=== PATIENT | male | born 1950 | race Caucasian/White ===

== ENCOUNTER 2018-01-10 22:29 | Inpatient (IN) | payer OTHER, BC ==
[2018-01-10] MEDS: NS 1,000 ML IV ONE ×2 (22:44→22:45)
[2018-01-10 22:49] LABS: PLATELET COUNT 315 10^3/uL (150-400)
--- NOTE | 2018-01-10 22:52 | EDPHY ---
H & P Time Seen by Provider: 01/10/18 22:49 HPI/ROS: Chief Complaint: Altered mental status, possible UTI HPI: 67-year-old male with a history of Parkinson's disease and diabetic neuropathy. He has a suprapubic catheter and also has an ileostomy in place. Son noted that his suprapubic catheter was clock this morning. He called a [facility] to come and make changed the catheter. Is has drained since then. He has become increasingly confused over the course of the day. He also has a history of a decubitus ulcer which was operated on several months ago. The patient and his son moved here from [place] a couple months ago. They do not have any local physicians or medical care. He has felt warm to the touch. He is normally conversant but is only mumbling yes or no today. Per EMS patient was tachycardic in the 130s. Son is also concerned that he has been noticed for the last 3 weeks that the patient has been passing stool per rectum despite the fact that the patient has a functioning ostomy. ROS: 10 systems were reviewed and were negative except those elements noted in the HPI. PMH: Parkinson's disease, diabetes, diabetic neuropathy Social History: No smoking, no alcohol, no recreational drug use Family History: non-contributory Physical Exam: Gen: Awake, frail-appearing, uncomfortable appearing HEENT: Nose: no rhinorrhea Eyes: PERRLA, EOMI Mouth: Dry mucosa Neck: Supple, no JVD Chest: nontender, lungs clear to auscultation Heart: S1, S2 normal, no murmur Abd: Soft, non-tender, ileostomy in place with normal appearing stool. Suprapubic catheter in place, there is mild erythema and some discharging crusting around the suprapubic site Ext: no edema, non-tender Skin: no rash Neuro: CN II-XII intact, Sensation grossly intact, Strength 5/5 in bilateral upper and lower extremities Constitutional: Initial Vital Signs Temperature (C) 39.3 C H 01/10/18 22:30 Heart Rate 130 H 01/10/18 22:30 Respiratory Rate 28 H 01/10/18 22:30 Blood Pressure 99/69 L 01/10/18 22:30 O2 Sat (%) 93 01/10/18 22:30 O2 Delivery Mode Room Air Allergies/Adverse Reactions: No Known Allergies Allergy (Unverified 01/10/18 22:49) Home Medications: Medication Instructions Recorded Carbidopa 01/10/18 Medical Decision Making ED Course/Re-evaluation: 67-year-old male likely uroseptic. He meets SIRS criteria. Lactic acid in sepsis orders have been sent. His bladder is empty. Will wait urine. He is clinically dehydrated. I aggressive IV hydration. Patient's lactate is 1.8. He does not meet criteria for severe sepsis at this point based on his numeric. He is getting IV hydration. He is sacral site does not appear infected at this time. Most likely source is his urine. I have discussed with the hospitalist, Dr. Neal. He agrees with the plan for IV ceftriaxone now. He will admit to his service for further care. - Data Points Laboratory Results: Laboratory Results 01/10/18 22:40 01/10/18 22:40 01/10/18 01/10/18 01/10/18 22:42 22:40 22:40 WBC 22.50 10^3/uL H 10^3/uL (3.80-9.50) RBC 4.90 10^6/uL 10^6/uL (4.40-6.38) Hgb 12.9 g/dL L g/dL (13.7-17.5) Hct 40.4 % % (40.0-51.0) MCV 82.4 fL fL (81.5-99.8) MCH 26.3 pg L pg (27.9-34.1) MCHC 31.9 g/dL L g/dL (32.4-36.7) RDW 17.6 % H % (11.5-15.2) Plt Count 315 10^3/uL 10^3/uL (150-400) MPV 9.4 fL fL (8.7-11.7) Neut % (Auto) 88.4 % H % (39.3-74.2) Lymph % (Auto) 6.2 % L % (15.0-45.0) [place] % (Auto) 4.2 % L % (4.5-13.0) Eos % (Auto) 0.0 % L % (0.6-7.6) Baso % (Auto) 0.3 % % (0.3-1.7) Nucleat RBC Rel Count 0.0 % % (0.0-0.2) Absolute Neuts (auto) 19.90 10^3/uL H 10^3/uL (1.70-6.50) Absolute Lymphs (auto) 1.39 10^3/uL 10^3/uL (1.00-3.00) Absolute Monos (auto) 0.94 10^3/uL H 10^3/uL (0.30-0.80) Absolute Eos (auto) 0.00 10^3/uL L 10^3/uL (0.03-0.40) Absolute Basos (auto) 0.07 10^3/uL 10^3/uL (0.02-0.10) Absolute Nucleated RBC 0.00 10^3/uL 10^3/uL (0-0.01) Immature Gran % 0.9 % % (0.0-1.1) Immature Gran # 0.20 10^3/uL H 10^3/uL (0.00-0.10) PT 15.7 SEC H SEC (12.0-15.0) INR 1.23 H (0.83-1.16) APTT 27.4 SEC SEC (23.0-38.0) VBG Lactic Acid 1.8 mmol/L mmol/L (0.7-2.1) Sodium Potassium Chloride Carbon Dioxide Anion Gap BUN Creatinine Estimated GFR Glucose Calcium Total Bilirubin 01/10/18 22:40 WBC RBC Hgb Hct MCV MCH MCHC RDW Plt Count MPV Neut % (Auto) Lymph % (Auto) [place] % (Auto) Eos % (Auto) Baso % (Auto) Nucleat RBC Rel Count Absolute Neuts (auto) Absolute Lymphs (auto) Absolute Monos (auto) Absolute Eos (auto) Absolute Basos (auto) Absolute Nucleated RBC Immature Gran % Immature Gran # PT INR APTT VBG Lactic Acid Sodium 133 mEq/L L mEq/L (135-145) Potassium 5.0 mEq/L mEq/L (3.3-5.0) Chloride 99 mEq/L mEq/L (97-110) Carbon Dioxide 16 mEq/l L mEq/l (22-31) Anion Gap 18 mEq/L H mEq/L (6-14) BUN 44 mg/dL H mg/dL (7-23) Creatinine 1.4 mg/dL H mg/dL (0.7-1.3) Estimated GFR 51 Glucose 191 mg/dL H mg/dL (70-100) Calcium 9.7 mg/dL mg/dL (8.5-10.4) Total Bilirubin 0.9 mg/dL mg/dL (0.1-1.4) Departure - Departure Disposition: [facility] Inpatient Acute Clinical Impression: Urinary tract infection, Dehydration, SIRS (systemic inflammatory response syndrome) Condition: Serious Referrals: Patient,NotPresent [Unknown] - As per Instructions
[2018-01-10 22:57] LABS: INR 1.23 (0.83-1.16); PROTIME(PATIENT) 15.7 SEC (12.0-15.0)
[2018-01-10] MEDS ORDERED: ACETAMINOPHEN 500 MG TAB ONE (23:03)
[2018-01-10] MEDS ORDERED: NS 1,000 ML IV ONE (23:09)
[2018-01-10] MEDS ORDERED: ONDANSETRON DISINTEGRATING 4 MG TAB PO PRN (23:17)
[2018-01-10] MEDS ORDERED: ONDANSETRON 4 MG/2 ML VIAL IVP PRN (23:17)
[2018-01-10] MEDS ORDERED: ACETAMINOPHEN 500 MG TAB PO ONE (23:21)
[2018-01-10] MEDS ORDERED: D50W 25 GM/50 ML SYR IVP PRN (23:42)
--- NOTE | 2018-01-11 00:57 | PDGENHP ---
History and Physical - Chief Complaint Fatigue, AMS - History of Present Illness 67 yo m w/ hx of PD presents with fatigue and confusion. The majority of the history is obtained from patient's son as patient is moderately confused. Per his son, the patient has displayed signs of fatigue and confusion starting today. He has also been febrile. His son tells me this is a common presentation for him when he has a urinary tract infection, which he has had many of. The patient tells me he is not feeling well but denies specific symptoms. He is breathing comfortably and saturating well on room air. Of note, he had a flap procedure performed recently to address sacral decubitus ulcer. This does not appear infected per his son. Also, his son tells me stool has been noted from his rectum despite ostomy placement 8 months ago. This has been ongoing for 2 weeks. UA is infectious appearing, he does have a supra-pubic catheter in place. He is being admitted for management of sepsis. Case discussed with ED physician Dr. Ruby; records reviewed and summarized above. History Information - Allergies/Home Medication List Allergies/Adverse Reactions: No Known Allergies Allergy (Unverified 01/10/18 22:49) Home Medications: Carbidopa 01/10/18 [Last Taken Unknown] I have personally reviewed and updated: family history, medical history - Past Medical History diabetes type 2 Additional medical history: Parkinson's Disease - Surgical History Additional surgical history: Ostomy. Supra-pubic catheter. Flap procedure for sacral decubitus ulcer - Family History Positive for: diabetes type II - Social History Smoking Status: Never smoked Review of Systems Review of Systems: ROS: 10pt was reviewed & negative except for what was stated in HPI & below Physical Exam Physical Exam: Temp Pulse Resp BP Pulse Ox 36.8 C 123 H 27 H 96/50 L 94 01/11/18 00:41 01/11/18 00:41 01/11/18 00:41 01/11/18 00:41 01/11/18 00:41 O2 (L/minute) 2 Constitutional: no apparent distress, chronically ill appearing Eyes: PERRL, EOMI Ears, Nose, Mouth, Throat: moist mucous membranes, no oral mucosal ulcers Cardiovascular: no murmur, rub, or gallop, tachycardia Respiratory: no respiratory distress, clear to auscultation Gastrointestinal: normoactive bowel sounds, soft, non-tender abdomen, other ( SPT tube noted; ostomy LLQ with brown stool) Skin: warm, other (Sacral flap appears to be healing well; only mild erythema) Neurologic: weakness, other (A&Ox2) Lab Data & Imaging Review 01/10/18 22:40 01/10/18 22:40 WBC 22.50 10^3/uL (3.80-9.50) H 01/10/18 22:40 RBC 4.90 10^6/uL (4.40-6.38) 01/10/18 22:40 Hgb 12.9 g/dL (13.7-17.5) L 01/10/18 22:40 Hct 40.4 % (40.0-51.0) 01/10/18 22:40 MCV 82.4 fL (81.5-99.8) 01/10/18 22:40 MCH 26.3 pg (27.9-34.1) L 01/10/18 22:40 MCHC 31.9 g/dL (32.4-36.7) L 01/10/18 22:40 RDW 17.6 % (11.5-15.2) H 01/10/18 22:40 Plt Count 315 10^3/uL (150-400) 01/10/18 22:40 MPV 9.4 fL (8.7-11.7) 01/10/18 22:40 Neut % (Auto) 88.4 % (39.3-74.2) H 01/10/18 22:40 Lymph % (Auto) 6.2 % (15.0-45.0) L 01/10/18 22:40 [place] % (Auto) 4.2 % (4.5-13.0) L 01/10/18 22:40 Eos % (Auto) 0.0 % (0.6-7.6) L 01/10/18 22:40 Baso % (Auto) 0.3 % (0.3-1.7) 01/10/18 22:40 Nucleat RBC Rel Count 0.0 % (0.0-0.2) 01/10/18 22:40 Absolute Neuts (auto) 19.90 10^3/uL (1.70-6.50) H 01/10/18 22:40 Absolute Lymphs (auto) 1.39 10^3/uL (1.00-3.00) 01/10/18 22:40 Absolute Monos (auto) 0.94 10^3/uL (0.30-0.80) H 01/10/18 22:40 Absolute Eos (auto) 0.00 10^3/uL (0.03-0.40) L 01/10/18 22:40 Absolute Basos (auto) 0.07 10^3/uL (0.02-0.10) 01/10/18 22:40 Absolute Nucleated RBC 0.00 10^3/uL (0-0.01) 01/10/18 22:40 Immature Gran % 0.9 % (0.0-1.1) 01/10/18 22:40 Immature Gran # 0.20 10^3/uL (0.00-0.10) H 01/10/18 22:40 PT 15.7 SEC (12.0-15.0) H 01/10/18 22:40 INR 1.23 (0.83-1.16) H 01/10/18 22:40 APTT 27.4 SEC (23.0-38.0) 01/10/18 22:40 VBG Lactic Acid 1.8 mmol/L (0.7-2.1) 01/10/18 22:42 Sodium 133 mEq/L (135-145) L 01/10/18 22:40 Potassium 5.0 mEq/L (3.3-5.0) 01/10/18 22:40 Chloride 99 mEq/L (97-110) 01/10/18 22:40 Carbon Dioxide 16 mEq/l (22-31) L 01/10/18 22:40 Anion Gap 18 mEq/L (6-14) H 01/10/18 22:40 BUN 44 mg/dL (7-23) H 01/10/18 22:40 Creatinine 1.4 mg/dL (0.7-1.3) H 01/10/18 22:40 Estimated GFR 51 01/10/18 22:40 Glucose 191 mg/dL (70-100) H 01/10/18 22:40 Calcium 9.7 mg/dL (8.5-10.4) 01/10/18 22:40 Total Bilirubin 0.9 mg/dL (0.1-1.4) 01/10/18 22:40 Urine Color YELLOW 01/11/18 00:30 Urine Appearance MODERATELY TURBID 01/11/18 00:30 Urine pH 5.0 (5.0-7.5) 01/11/18 00:30 Ur Specific [place] 1.011 (1.002-1.030) 01/11/18 00:30 Urine Protein 1+ (NEGATIVE) H 01/11/18 00:30 Urine Ketones TRACE (NEGATIVE) H 01/11/18 00:30 Urine Blood 3+ (NEGATIVE) H 01/11/18 00:30 Urine Nitrate NEGATIVE (NEGATIVE) 01/11/18 00:30 Urine Bilirubin NEGATIVE (NEGATIVE) 01/11/18 00:30 Urine Urobilinogen NEGATIVE EU (0.2-1.0) 01/11/18 00:30 Ur Leukocyte Esterase 3+ (NEGATIVE) H 01/11/18 00:30 Urine RBC 50-182 /hpf (0-3) H 01/11/18 00:30 Urine WBC 50-182 /hpf (0-3) H 01/11/18 00:30 Ur Epithelial Cells NONE SEEN /lpf (NONE-1+) 01/11/18 00:30 Urine Bacteria 3+ /hpf (NONE SEEN) H 01/11/18 00:30 Urine Mucus TRACE /lpf (NONE-1+) 01/11/18 00:30 Urine Glucose NEGATIVE (NEGATIVE) 01/11/18 00:30 Nasal Influenza A PCR NEGATIVE FOR FLU A (NEGATIVE) 01/10/18 23:20 Nasal Influenza B PCR NEGATIVE FOR FLU B (NEGATIVE) 01/10/18 23:20 Imaging Review: Imaging Impressions Chest X-Ray 01/10/18 22:42 Impression: Probable bronchitis. Assessment & Plan Assessment: 67 yo M w/ Parkinson's disease and suprapubic catheter presents with sepsis from likely urinary source. Plan: 1. Sepsis - 3/4 SIRS present on admission (HR, T, WBC); source likely urinary. SOFA score of 8. Lactate normal, which is reassuring. The patient has had numerous urinary infections in the past but unfortunately this is his first visit here so difficult to know history of resistant pathogens. - Admit to SDU for close monitoring - S/p 3 L IVF in the ED; continue fluid resuscitation as indicated - CTX 1 g qD for now; low threshold to broaden if not improving - Blood and urine cultures pending - Catheter changed in the ED 2. ANY - Serum creatinine 1.4 on admission with unknown baseline. This is likely due to sepsis and dehydration noting minimal urine output so far despite aggressive hydration. - Continue fluid resuscitation - Monitor BMP - Renally dose medications, avoid nephrotoxic agents 3. Parkinson's disease - S/p SPT and ostomy placement. He has minimal function below his waist. - Continue carbidopa/levodopa pending medicine reconciliation - PT/OT evaluations - CM consulted to review home health services are adequate 4. DM - Takes metformin as outpatient. Noting ANY, will manage BG with insulin for now. - Insulin lispro SSI - Monitor BG ACHS; D50 IVF PRN for hypoglycemia 5. Stool via rectum - Per son, patient has been producing stool via rectum for 2 weeks despite ostomy placement 8 months ago. This brings up possibility of a fistula. - Consider surgical consult (inpatient v outpatient) once stable 6. Acute metabolic encephalopathy - 2/2 infection, continue to monitor. - Acute management as above Diet - Regular Code - Full Ppx - LMWH Dispo - Admit under inpatient status
[2018-01-11] MEDS: NS 1,000 ML IV SCH ×3 (01:28→23:08)
[2018-01-11] MEDS ORDERED: NS 1,000 ML IV ONE (02:32)
[2018-01-11] MEDS ORDERED: traMADol 50 MG TAB PO ONE (03:44)
[2018-01-11] MEDS: INSULIN LISPRO 100 UNIT/ML SC SCH ×3 (09:20→18:23)
--- NOTE | 2018-01-11 09:47 | ASMTCMCOM ---
CM Note CM Note Notes: 67yo male admitted for Sepsis, UTI, Dehydration, SIRS, Encephalopathy. He has a Hx of Sacral decube ulcer s/p flap, DM-2, Parkinson's. Has been at [facility] an LTAC and SNF for decube healing. Has the same address as his son Leonel. CM to follow for discharge needs. Date Signed: 01/11/2018 09:46 AM Electronically Signed By:Hanh Kang LCSW
[2018-01-11] MEDS: AZITHROMYCIN IV 500 MG in D5W 250 ML IV SCH (09:49)
--- NOTE | 2018-01-11 10:48 | PDMN ---
Medical Necessity Medical necessity: [facility] [place] Sepsis A-3 days: 67 yo w/ acute onset fatigue and confusion. Further eval reveals severe sepsis likely urinary w/ WBC 22.05, SBP 80s, HR 130, temp 39.3, RR 28, creat 1.4 w/ unknown baseline. Sepsis protocol started-IV antibx, IVF, cultures pending, monitor labs. Anticipate>2MN for ongoing monitoring and tx of the above. Pt meets IP criteria for sepsis w/ AMS , tachypnea, hemodynamic instability, and elevated creatinine. Hx Parkinson's ostomy placement 8m ago, supra-pubic catheter, flap procedure for sacral decub.
--- NOTE | 2018-01-11 11:45 | POSTOPPROG ---
Post Op Note Date of Operation: 01/11/18 Surgeon: Jorge Luis Napoles Anesthesia: Local (Specify) (5cc 1% lidocaine) Pre-op Diagnosis: Sepsis, inadequate venous access Post-op Diagnosis: Sepsis, inadequate venous access Indication: Sepsis, inadequate venous access Procedure: placement of right subclavian central line Findings: Sepsis, inadequate venous access Inf/Abcess present in the surg proc area at time of surgery?: No EBL: Minimal Total fluids administered: 500cc NS Complications: none, line in good position, CXR w/o PTX Specimen(s): none
--- NOTE | 2018-01-11 12:02 | HOSPPROG ---
Hospitalist Progress Note Assessment/Plan: CRITICAL CARE NOTE > 60 MIN TOTAL CRITICAL CARE TIME AT THE BEDSIDE TODAY SEEN BY ME ON HOSPITALS ROUNDS WELL MULTIDISCIPLINARY ICU ROUNDS DIAGNOSES: * acute severe sepsis with organ failure * gram-negative ryan bacteremia, identification of organism pending, high risk of resistant organism with recent hospital and rehabilitation center stays * suspect catheter associated urinary tract infection with chronic suprapubic catheter as cause * acute kidney injury * acute metabolic acidosis due to above * type 2 diabetes mellitus * On metformin at home which is held now due to acidosis and shock with renal failure * dementia, family is his surrogate decision maker, his here at the bedside * advanced Parkinson's disease PLANS: * We performed NICOM testing this morning and he was not fluid responsive * For the purposes being able to draw blood samples and to treat with pressors safely have asked Dr. Luis Napoles to place a central IV catheter and this has now been done * Will begin Levophed drip at this time * Will continue empiric antibiotic therapy, however I will switch to meropenem at this time due to his exposure to hospitals and nursing homes with his CAUTI * Follow sugars closely and treat as indicated with insulin as necessary. Hold metformin for now due to his renal insufficiency and metabolic acidosis * DVT prophylaxis * Continue his Parkinson's medicines We reviewed the patient's condition and treatment plan with his family at the bedside this morning during ICU rounds. SUBJECTIVE: As called by his nurse to see this patient this morning with ongoing hypotension after admission last night for sepsis. As I come to the room the patient is awake and denying any pain although he has dementia and is fairly lethargic even stuporous and unable to get a very good history at all at the time being He was admitted last night and given by the time I saw him this morning a total of 4 L of IV fluid and antibiotics yet remains tachycardic and hypotensive. His initial lactate was good. OBJECTIVE Vitals reviewed: Systolics remain in low mid 80s and diastolics in the 40s with mean pressure in the low mid 50s, tachycardic with heart rate 115-120, tachypneic in the mid 20s but oxygenating well on room air, no fever so far this morning Plaster Tender, my review: Sinus tachycardia Exam: Awake but stuporous, with dementia, mild parkinsonian tremor (has not had his Parkinson's med this morning) skin pale, quite diaphoretic generally warm but cooler at the distal digits resps not labored somewhat rapid lungs diminished but clear BSs heart regular tachycardic no murmur abd soft nondistended nontender, bowel sounds present; suprapubic catheter and colostomy in place both look good, some small amount of clear urine out limbs warm, no edema iv site ok Lab data: Remains acidotic with a CO2 of 14, renal function better creatinine at 0.9, lytes okay, sugars in the 140-190 range White count remains elevated at 17,000 thousand, anemia worsened normocytic with hemoglobin 10, platelets stable Microbiology data: We have received report from laboratory that this a gram-negative ryan in 1 of his blood culture bottles, urine pending Radiology: I reviewed his chest x-ray from yesterday and there does appear to be some mild density in the right lower lobe, either infiltrate or atelectasis I ordered a repeat chest x-ray I reviewed the images from that compared to yesterday and they are unchanged essentially. On talk with the family the patient apparently had pneumonia around a month ago and was treated with antibiotics for that. Objective: Vital Signs Temp Pulse Resp BP Pulse Ox 36.4 C 101 H 16 76/44 L 98 01/11/18 07:56 01/11/18 11:15 01/11/18 11:15 01/11/18 11:15 01/11/18 11:15 Laboratory Results 01/11/18 05:00 01/11/18 05:00 01/10/18 01/11/18 01/12/18 06:59 06:59 06:59 Intake Total 4317 Output Total 875 Balance 3442 PT 15.7 SEC (12.0-15.0) H 01/10/18 22:40 INR 1.23 (0.83-1.16) H 01/10/18 22:40 ICD10 Worksheet Patient Problems: Problems Problem Status Onset Dehydration Acute SIRS (systemic inflammatory response syndrome) Acute Urinary tract infection Acute
--- NOTE | 2018-01-11 12:15 | GOP ---
DATE OF OPERATION: 01/11/2018 SURGEON: Jorge Luis Napoles MD PREOPERATIVE DIAGNOSIS: Sepsis with inadequate venous access. POSTOPERATIVE DIAGNOSIS: Sepsis with inadequate venous access. PROCEDURE PERFORMED: Placement of right subclavian triple-lumen central catheter. FINDINGS: Sepsis with inadequate venous access. INDICATIONS: Sepsis with inadequate venous access. DESCRIPTION OF PROCEDURE: The patient was appropriately identified. A surgical time-out was carried out. The right neck was carefully interrogated with an ultrasound probe. Good size subclavian vessels identified. The chest was carefully cleaned, prepped, and draped. The skin was anesthetized in an infraclavicular spot using approximately 2 cc of 1% Xylocaine. A thin-wall 16-gauge needle was carefully advanced. Good blood return was obtained. The bevel was rotated 90 degrees so it faced in the caudal direction. The guidewire was carefully passed, and ectopy was identified consistent with passage into the right heart. The guidewire was carefully pulled back. The needle and syringe were carefully removed from the guidewire. The skin was carefully incised. A dilator was now passed. The dilator was removed. The previously flushed triple-lumen catheter was now advanced. (The blue and the white hubs have had a Hep-Lock adapter placed and had been flushed prior to advancement). The guidewire comes through the brown hub. The central line is advanced over the guide wire to 15 cm at the skin alexus. The guidewire was removed. Aspiration revealed good blood flow. The hub was carefully placed and flushed. A 3-0 silk suture was used to secure the catheter to the skin at the entrance site. The skin was now anesthetized, and at a 2nd point, the hub was secured to the skin. A Biopatch was placed. A Tegaderm was positioned. X-ray confirmation shows good position with no pneumothorax. /[id number]/MODL MTDD
[2018-01-11 12:25] LABS: INR 1.66 (0.83-1.16); PROTIME(PATIENT) 19.7 SEC (12.0-15.0)
[2018-01-11] MEDS: ENOXAPARIN 40 MG/0.4 ML SYR SC SCH (12:46)
[2018-01-11] MEDS: NOREPINEPHRINE BITARTRATE 4 MG in NS 500 ML IV SCH ×2 (12:52→23:08)
[2018-01-11] MEDS: CARBIDOPA/LEVODOPA 25 MG/100 MG TAB PO SCH ×2 (16:46→20:30)
--- NOTE | 2018-01-11 17:11 | GCON ---
PULMONARY/CRITICAL CARE CONSULTATION DATE OF CONSULTATION: 01/11/2018 REFERRING PHYSICIAN: Tremaine Thompson MD REASON FOR REFERRAL: Evaluation and management of sepsis. HISTORY: The patient is a 67-year-old male with a history of Parkinson disease , as well as with a chronic indwelling suprapubic catheter. Is also status post colostomy, who was admitted overnight with confusion and fatigue. This has been a common presentation for urinary tract infections, which the patient has had many. The patient states that he was feeling very poorly, but feels now that he is nearly back to baseline after getting IV fluids and antibiotics. He denies any shortness of breath. No chest pain, cough, or other pain. PAST MEDICAL HISTORY: 1. Parkinson disease. 2. Status post ostomy placement. 3. Status post flap procedure for sacral decubitus. 4. Type 2 diabetes. MEDICATIONS: Include Sinemet, metformin, and aspirin. ALLERGIES: None. SOCIAL HISTORY: The patient has never smoked. FAMILY HISTORY: Positive for type 2 diabetes. REVIEW OF SYSTEMS: A 10-point review of systems adds nothing to the history of present illness. PHYSICAL EXAMINATION: GENERAL: The patient is awake, alert. He is in no acute distress. VITAL SIGNS: Blood pressure 116/64, up from 76/44 earlier this morning. His heart rate is 110. His temperature was 39.3 on admission last night, but he has been afebrile since then. Oxygen saturations are 95% on room air. HEENT: Normocephalic and atraumatic. No icterus. NECK: No JVD. Trachea is midline. CHEST: Clear to auscultation. CARDIAC: Regular rate and rhythm without murmur. ABDOMEN: Soft, nontender. Bowel sounds are present. EXTREMITIES: No clubbing, cyanosis, or edema. SKIN: He has a flap over his sacrum. There is some dusky erythema centrally, but no significant hyperemia and no skin breakdown or drainage. NEURO: The patient is awake and alert. He has a resting tremor consistent with Parkinson's. He has diffuse symmetric motor weakness. LABORATORY DATA: White blood count of 17.4, down from 22.5. Creatinine is 0.9 , down from 1.4, potassium is 4.3, glucose is 360, up from the 100s earlier. Arterial blood gas shows a lactate of 1.8. INR is 1.7, up from 1.2. Urine shows greater than 50 white blood cells and red blood cells. Influenza swab is negative. Blood cultures positive for Klebsiella. Urine culture is pending. IMAGING PROCEDURE: A chest x-ray shows possible bronchitis. Central line is in good position. Images reviewed by me. ASSESSMENT: 1. Sepsis due to Klebsiella isolated on blood cultures. This is likely from a urinary source. The patient has been started on the sepsis protocol and has received several L of fluid. He has received ceftriaxone, azithromycin, as well as meropenem for antibiotics. I think the azithromycin can probably be stopped. He has responded to the sepsis protocol, with improved renal function and blood pressure. He was on norepinephrine at high rate, but is currently just on 3 mcg/kg per minute. 2. Diabetes. The patient's blood sugars are markedly elevated, likely as a result of the patient's underlying diabetes and holding metformin. 3. Parkinson disease. 4. Sacral decubitus, status post flap placement. The flap does show some evidence of some pressure centrally, but no signs of skin breakdown. 5. Status post colostomy. The patient apparently continues to have some colonic output in spite of having a colostomy. This could be due to some ongoing mucus production from his pouch. RECOMMENDATIONS: 1. Continue sepsis protocol. As mentioned above, antibiotics can be simplified , stopping azithromycin. 2. Further cultures are pending. 3. Patient was given some fluids, but coughed quite a bit. The patient will be made n.p.o. and swallow evaluations will be ordered. An NG tube will be placed if medications are to be given and he is unable to swallow. 4. Sliding scale insulin for diabetes. /[id number]/MODL MTDD
[2018-01-11] MEDS: ACETAMINOPHEN 325 MG TAB PO PRN (20:30)
[2018-01-11] MEDS: MEROPENEM 1 GM in NS 100 ML IV SCH (20:31)
[2018-01-12 06:00] LABS: PLATELET COUNT 204 10^3/uL (150-400)
[2018-01-12] MEDS: MEROPENEM 1 GM in NS 100 ML IV SCH ×2 (08:50→21:17)
[2018-01-12] MEDS: ASPIRIN EC 81 MG TAB PO SCH (08:53)
[2018-01-12] MEDS: CARBIDOPA/LEVODOPA 25 MG/100 MG TAB PO SCH ×3 (08:53→21:17)
[2018-01-12] MEDS: ENOXAPARIN 40 MG/0.4 ML SYR SC SCH (08:55)
[2018-01-12] MEDS ORDERED: MULTIVITAMINS 1 EACH TAB PO SCH (09:00)
[2018-01-12] MEDS: INSULIN LISPRO 100 UNIT/ML SC SCH ×3 (09:12→17:31)
[2018-01-12] MEDS: ACETAMINOPHEN 325 MG TAB PO PRN (09:16)
[2018-01-12] MEDS ORDERED: PNEUMOC 13-VAL CONJ-DIP CRM/PF 0.5 ML SYR (PREVNAR 13) IM ONE (09:33)
[2018-01-12] MEDS: AZITHROMYCIN IV 500 MG in D5W 250 ML IV SCH (09:48)
--- NOTE | 2018-01-12 09:50 | WOCRNPDOC ---
[facility] Advanced Assessment Note - Skin Integrity Problem, Advanced Assess Sacrum Pressure Injury Dressing Type: Mepilex Border Dressing Description: Clean/Dry, Intact Exudate Amount: Scant Exudate Characteristic(s): Serosanguinous Integumentary Issue Intervention: Visualized Under Dressing Randee Wound Tissue: Blanching, Erythema, Non-blanching, Scarred Wound Bed Constitution: Red/Leaf - Non Granular Tissue Wound Edges: Epithelizing, Attached Site Measurement - Head-to-Toe Length X Width X Depth (cm): 4x5 area with small openings all less than 0.2x0.2x0.1 Pressure Injury Stage: Stage 4 Pressure Injury Present on Admit: Yes Skin Integrity Problem Comment: Patient reports having flap surgery many years ago, but its is unclear if this is the area that was flapped. There is scar tissue evident but with the significant amount of calazime on the area it is difficult to visualize details. The area is mostly healed with small partial thickness openings present. Patient should be on air fluidized support surface ( [place]) for length of stay. Wound care will follow up next week. Left Ischial Tuberosity Pressure Injury Dressing Type: Open to Air Exudate Amount: Scant Exudate Characteristic(s): Serosanguinous Randee Wound Tissue: Erythema, Scarred Wound Bed Color: Red Wound Bed Constitution: Granulation Tissue Wound Edges: Attached Site Measurement - Head-to-Toe Length X Width X Depth (cm): 3.5x1.5x0.2 Pressure Injury Stage: Stage 4 Pressure Injury Present on Admit: Yes Skin Integrity Problem Comment: Healing stage 4 pressure injury. No deeper structures visible at this time and fully granulated, almost level with the skin surface. Steve BAHENA in room. Right Ischial Tuberosity Pressure Injury Dressing Type: Open to Air Exudate Amount: Scant Exudate Characteristic(s): Serosanguinous Randee Wound Tissue: Blanching, Erythema, Scarred Wound Bed Constitution: Red/Leaf - Non Granular Tissue (100%) Site Measurement - Head-to-Toe Length X Width X Depth (cm): 1.5x2x0.1 Pressure Injury Stage: Stage 3 Pressure Injury Present on Admit: Yes Skin Integrity Problem Comment: Now partial thickness but the scar tissue surrounding the wounds indicate that this was a full thickness wound in the past. May have been stage 4. Wound care will follow. Do not apply calazime to patient's bottom. - Colostomy Assessment, Advanced Left Lower Abdomen Colostomy Stoma Colostomy Appliance Intact: Yes Colostomy Appliance Currently in Use: One Piece Flat, 2 3/4, Cut to Fit Stoma Height: Protruding Colostomy Effluent: Fecal, Pasty Colostomy Comment/Treatment Details: Did not take down appliance. It was intact and working well. No concerns. Wound care will not follow.
[2018-01-12] MEDS ORDERED: PROTOCOL MAGNESIUM 1 DOSE IV PRN (10:47)
[2018-01-12] MEDS ORDERED: PROTOCOL POTASSIUM 1 DOSE MISC PRN (10:47)
[2018-01-12] MEDS ORDERED: POTASSIUM CL 10 MEQ TAB PO ONE ×2 (10:54→23:01)
[2018-01-12] MEDS: NS 1,000 ML IV SCH (13:20)
--- NOTE | 2018-01-12 15:22 | HOSPPROG ---
Hospitalist Progress Note Assessment/Plan: Subjective Follow-up on severe sepsis and bacteremia. No acute events overnight. Patient is [id number] was present at the bedside today. I reviewed with both the patient and his [id number] that he seems to be progressing in the right direction in regards to his sepsis and acute kidney injury. We discussed that he does have evidence of bacteria both his urine as well as blood and it was likely the bladder infection that progressed into the blood stream. Patient states he is feeling better today as compared to when he 1st came in. No new complaints today. Objective Vital signs as detailed below Exam General-awake alert conversant no acute distress Heart-regular rate and rhythm no murmurs Lungs-Clear to auscultation with normal respiratory effort Abdomen-soft nontender nondistended normal bowel sounds, colostomy with brown stool, suprapubic catheter in place Extremities-no significant pitting edema or calf pain with palpation Skin-no concerning skin rashes noted Neuro-bradykinesia with masked facial expression, rigidity and tremor also noted Labs as detailed below Assessment and plan Severe sepsis-suspecting secondary to urinary tract infection and bacteremia. White blood cell count is trending down with current antibiotic therapy. Continue to monitor with current therapy. Bacteremia-Klebsiella. Continue meropenem pending final culture and sensitivities. Repeat blood cultures ordered. Urinary tract infection-complicated. Patient has suprapubic catheter in place. Acute kidney injury-resolved. Creatinine improved from 1.4-0.6 with IV fluids. Hypokalemia-3.3 today. Patient has potassium replacement protocol ordered. Hypomagnesemia -1.5 today. As above patient has magnesium replacement protocol in place. Anemia-patient had a drop in his hemoglobin from 12-8. No obvious clinical bleeding. This may be dilutional. Continue to trend. Dementia-suspect secondary to Parkinson's disease. Parkinson's disease-continue current Sinemet dosing. Diabetes mellitus type 2-metformin is currently on hold. Continue sliding scale insulin. Sacral decubitus ulcers-these were chronic present on admission. Continue wound care. DVT prophylaxis-Lovenox. Disposition-patient was living with son prior to coming to the hospital and I would hope we could have him return to that setting once medically clear. Objective: Vital Signs Temp Pulse Resp BP Pulse Ox 37.1 C 99 12 127/45 H 100 01/12/18 08:00 01/12/18 14:46 01/12/18 14:46 01/12/18 14:46 01/12/18 14:46 Laboratory Results 01/12/18 05:15 01/12/18 05:15 01/11/18 01/12/18 01/13/18 05:59 05:59 05:59 Intake Total 4317 4218 50 Output Total 875 2100 400 Balance 3442 2118 -350 PT 19.7 SEC (12.0-15.0) H 01/11/18 12:02 INR 1.66 (0.83-1.16) H 01/11/18 12:02 ICD10 Worksheet Patient Problems: Problems Problem Status Onset Dehydration Acute SIRS (systemic inflammatory response syndrome) Acute Urinary tract infection Acute
--- NOTE | 2018-01-12 17:45 | PDINTPN ---
Flat Optical Element Maker Progress Note Assessment/Plan: Assessment: Sepsis: Secondary to urinary tract source. Klebsiella in blood, with Klebsiella and Pseudomonas in the urine. On meropenem. Pseudomonas may be a colonizer in this case. Hypotension: Resolving. Levophed being weaned. Parkinson's: Chronic, on Sinemet. Disabled. Swallow dysfunction. Does cough/choke at times with fluids as well as solids. Swallowing evaluation being done today. May need a video. Metabolic: Hypokalemia, hypomagnesemia. DVT prophylaxis: On enoxaparin Plan: Continue care in ICU. Can transfer to step-down. Continue present antibiotics. Began to decrease IV fluids. Continue medications for Parkinson' s. Await sensitivities. 25 min critical care time spent directly with the patient. Discussed issues with the patient, a stepdaughter, nursing, hospitalist, the ICU multi disciplinary team. Subjective: Doing okay. Feels better. Denies pain or discomfort. No shortness of breath. Objective: Vital Signs Temp Pulse Resp BP Pulse Ox 36.8 C 114 H 18 117/56 L 99 01/12/18 16:00 01/12/18 17:00 01/12/18 17:00 01/12/18 17:00 01/12/18 17:00 Laboratory Results 01/12/18 05:15 01/12/18 05:15 01/11/18 01/12/18 01/13/18 05:59 05:59 05:59 Intake Total 4317 4218 50 Output Total 875 2100 850 Balance 3442 2118 -800 PT 19.7 SEC (12.0-15.0) H 01/11/18 12:02 INR 1.66 (0.83-1.16) H 01/11/18 12:02 Microbiology 01/11/18 00:30 Urine,Catheterized Urine Culture - Preliminary Klebsiella Pneumoniae Pseudomonas Aeruginosa Laboratory Tests 01/12/18 01/12/18 01/12/18 05:15 05:15 17:28 POC Glucose 187 H Calcium 8.4 L Magnesium 1.5 L Physical Exam - Physical Exam General Appearance: alert, no apparent distress, thin, other (Tremor secondary to Parkinson's) EENT: PERRL/EOMI, other (On room air) Neck: normal inspection (No JVD) Respiratory: lungs clear, decreased breath sounds (At bases) Cardiac/Chest: tachycardia (Sinus), No gallop Abdomen: non-tender, soft, other (Colostomy in place, functioning), No normal bowel sounds (Decreased, present) Male Genitalia: other (Suprapubic catheter in place) Skin: warm/dry, pallor Extremities: No pedal edema Neuro/Psych: No no motor/sensory deficits (Globally weak, parkinsonian tremor), No cognition abnormalities ICD10 Worksheet Patient Problems: Problems Problem Status Onset Urinary tract infection Acute Dehydration Acute SIRS (systemic inflammatory response syndrome) Acute
[2018-01-12] MEDS ORDERED: MAGNESIUM SULF 1 GM/DEXTROSE 100 ML IV ONE (18:02)
[2018-01-13] MEDS: NS 1,000 ML IV SCH (06:32)
[2018-01-13 06:46] LABS: PLATELET COUNT 160 10^3/uL (150-400)
[2018-01-13] MEDS ORDERED: MAGNESIUM SULF 2 GM/WATER 50 ML IV ONE (08:14)
[2018-01-13] MEDS ORDERED: POTASSIUM CL 10 MEQ TAB PO ONE ×2 (08:14→20:22)
[2018-01-13] MEDS: INSULIN LISPRO 100 UNIT/ML SC SCH ×3 (08:15→18:10)
[2018-01-13] MEDS: ASPIRIN EC 81 MG TAB PO SCH (08:58)
[2018-01-13] MEDS: CARBIDOPA/LEVODOPA 25 MG/100 MG TAB PO SCH ×3 (08:58→20:41)
[2018-01-13] MEDS: ENOXAPARIN 40 MG/0.4 ML SYR SC SCH (08:59)
--- NOTE | 2018-01-13 15:19 | HOSPPROG ---
Hospitalist Progress Note Assessment/Plan: Subjective Follow-up on severe sepsis and bacteremia. No acute events overnight. Patient is without any new complaints today. I reviewed that his blood work continues to look better and that he had evidence of Klebsiella in both his urine and blood cultures. We discussed that replete blood cultures have been sent and currently pending but no growth today. His case was reviewed during rounds today and Physical therapy felt that he was at his baseline status currently. They do stated they have over here left at home and felt that patient is safe to return back to home when medically clear. Objective Vital signs as detailed below Exam General-awake alert conversant no acute distress, more awake alert as compared to yesterday's exam Heart-regular rate and rhythm no murmurs Lungs-Clear to auscultation with normal respiratory effort Abdomen-soft nontender nondistended normal bowel sounds, colostomy with brown stool, suprapubic catheter in place left of midline Extremities-no significant pitting edema or calf pain with palpation Skin-no concerning skin rashes noted Neuro-bradykinesia with masked facial expression, rigidity and tremor also noted Labs as detailed below Assessment and plan Severe sepsis-improving parameters. Secondary to bacteremia and urinary tract infection. Bacteremia-Klebsiella. Antibiotics changed today from meropenem to ceftriaxone based upon sensitivities. Repeat blood cultures pending. Urinary tract infection-complicated. Patient has suprapubic catheter in place. Hypokalemia-improved to 3.4 today.. Patient has potassium replacement protocol ordered. Hypomagnesemia -1.4 today. As above patient has magnesium replacement protocol in place. Anemia-patient had a drop in his hemoglobin from 12 upon admission. Relatively stable from 8.3-7.7 today. No obvious clinical bleeding. This may be dilutional. Continue to trend. Dementia-suspect secondary to Parkinson's disease. Parkinson's disease-continue current Sinemet dosing. Diabetes mellitus type 2-metformin is currently on hold. Continue sliding scale insulin. Sacral decubitus ulcers-these were chronic present on admission. Continue wound care. DVT prophylaxis-Lovenox. Disposition-patient was living with son prior to coming to the hospital and I would hope we could have him return to that setting once medically clear. Objective: Vital Signs Temp Pulse Resp BP Pulse Ox 36.8 C 84 18 125/78 H 95 01/13/18 06:00 01/13/18 08:00 01/13/18 08:00 01/13/18 08:00 01/13/18 08:00 Microbiology 01/10/18 23:20 Blood Culture - Final Blood Klebsiella Pneumoniae Laboratory Results 01/13/18 06:20 01/13/18 06:20 01/12/18 01/13/18 01/14/18 05:59 05:59 05:59 Intake Total 4218 2710 Output Total 2100 2470 Balance 2118 240 PT 19.7 SEC (12.0-15.0) H 01/11/18 12:02 INR 1.66 (0.83-1.16) H 01/11/18 12:02 ICD10 Worksheet Patient Problems: Problems Problem Status Onset Dehydration Acute SIRS (systemic inflammatory response syndrome) Acute Urinary tract infection Acute
--- NOTE | 2018-01-13 17:30 | PDINTPN ---
Planting Supervisor Progress Note Assessment/Plan: Assessment: Sepsis: Secondary to urinary tract source. Klebsiella in blood, with Klebsiella and Pseudomonas in the urine. On ceftriaxone. Pseudomonas may be a colonizer in this case. Hypotension: Resolved. Off Levophed Parkinson's: Chronic, on Sinemet. Disabled. Swallow dysfunction. Does cough/choke at times with fluids as well as solids. Swallowing precautions in place.. Metabolic: Hypokalemia, hypomagnesemia, hyponatremia. Follow. DVT prophylaxis: On enoxaparin Plan: Continue care. Can transfer to a medical-surgical bed today. Possibly home tomorrow. Continue antibiotics, Sinemet, other medications.. 20 min critical care time spent directly with the patient. Discussed issues with the patient, nursing, hospitalist, the ICU multi disciplinary team. Subjective: Feels better. Much less tremor. Feels he is close to baseline. Denies shortness of breath. Denies significant pain. Objective: Vital Signs Temp Pulse Resp BP Pulse Ox 36.7 C 92 16 122/80 H 99 01/13/18 16:39 01/13/18 16:39 01/13/18 16:39 01/13/18 16:39 01/13/18 16:39 Microbiology 01/10/18 23:20 Blood Culture - Final Blood Klebsiella Pneumoniae Laboratory Results 01/13/18 06:20 01/13/18 06:20 01/12/18 01/13/18 01/14/18 05:59 05:59 05:59 Intake Total 4218 2710 Output Total 2100 2470 825 Balance 2118 240 -825 PT 19.7 SEC (12.0-15.0) H 01/11/18 12:02 INR 1.66 (0.83-1.16) H 01/11/18 12:02 Physical Exam - Physical Exam General Appearance: alert, no apparent distress, thin EENT: PERRL/EOMI, other (On room air) Neck: normal inspection (No JVD) Respiratory: lungs clear, decreased breath sounds (And excursions), No rales, No rhonchi Cardiac/Chest: regular rate, rhythm Abdomen: normal bowel sounds, non-tender, soft Male Genitalia: other (Suprapubic catheter in place) Skin: warm/dry, pallor Extremities: pedal edema (Trace +) Neuro/Psych: cognition abnormalities (Slow responses but appropriate), No no motor/sensory deficits (Generalized weakness, parkinsonian tremor) ICD10 Worksheet Patient Problems: Problems Problem Status Onset Urinary tract infection Acute Dehydration Acute SIRS (systemic inflammatory response syndrome) Acute
[2018-01-13] MEDS: ACETAMINOPHEN 325 MG TAB PO PRN (20:41)
[2018-01-14] MEDS: NS 1,000 ML IV SCH (02:17)
[2018-01-14 04:22] LABS: PLATELET COUNT 168 10^3/uL (150-400)
--- NOTE | 2018-01-14 08:03 | HOSPPROG ---
Hospitalist Progress Note Assessment/Plan: #Sepsis: due to Klebsiella bacteremia #Klebsiella bacteremia: #Hypokalemia/hypomagnesium: repleting, on protocol #Dysphagia #Hypotension: resolved Objective: Vital Signs Temp Pulse Resp BP Pulse Ox 36.6 C 88 16 146/88 H 97 01/14/18 04:17 01/14/18 04:17 01/14/18 04:17 01/14/18 04:17 01/14/18 04:17 Microbiology 01/11/18 00:30 Urine Culture - Final Urine,Catheterized Klebsiella Pneumoniae Ssp Pneu Pseudomonas Aeruginosa 01/10/18 23:20 Blood Culture - Final Blood Klebsiella Pneumoniae Laboratory Results 01/14/18 04:10 01/14/18 04:10 01/13/18 01/14/18 01/15/18 05:59 05:59 05:59 Intake Total 2710 1194 Output Total 2470 2825 Balance 240 -1631 PT 19.7 SEC (12.0-15.0) H 01/11/18 12:02 INR 1.66 (0.83-1.16) H 01/11/18 12:02 ICD10 Worksheet Patient Problems: Problems Problem Status Onset Dehydration Acute SIRS (systemic inflammatory response syndrome) Acute Urinary tract infection Acute
[2018-01-14] MEDS ORDERED: POTASSIUM CL 10 MEQ TAB PO ONE ×2 (08:22→22:04)
[2018-01-14] MEDS ORDERED: MAGNESIUM SULF 2 GM/WATER 50 ML IV ONE (08:26)
[2018-01-14] MEDS: INSULIN LISPRO 100 UNIT/ML SC SCH ×3 (09:15→18:02)
[2018-01-14] MEDS: ASPIRIN EC 81 MG TAB PO SCH (09:17)
[2018-01-14] MEDS: ENOXAPARIN 40 MG/0.4 ML SYR SC SCH (09:17)
[2018-01-14] MEDS: CARBIDOPA/LEVODOPA 25 MG/100 MG TAB PO SCH ×3 (09:41→20:47)
--- NOTE | 2018-01-14 12:14 | PDIAF ---
- Diagnosis Diagnosis: bacteremia Code Status: Full Code - Medication Management Discharge Medications: electronically signed and located in the Home Medication List. - Orders Services needed: Home Care, Registered Nurse, Certified Sql Developer Dba, Master Panel Installer Home Care Face to Face: I certify that this patient was under my care and that I had the required [id number] encounter meeting the encounter requirements on the discharge day. My findings support the fact that the patient is homebound as defined in Home Care Face to Face Continued: CMS Chapter 7 Medicare Benefits Manual 30.1.1 , The condition of the patient is such that there exists a normal inability to leave home and consequently, leaving home would require a considerable and taxing effort. Diet Texture: Regular Texture Diet, Thin Liquids, Meds Whole w/Liquids Additional Instructions: Wound care: Please contact [facility] outpatient [facility] for an appointment, at , for follow up within 2-3 weeks. Sacrum: Keep covered with mepilex border sacral dressing. Follow instructions below for ischial wound care if wounds are open, but cover with Mepilex border sacral dressing instead of other foam border dressing. Change dressings to Left and right ischial wounds every 3 days and prn. 1. Clean with ns and gauze 2. Apply Wound gel to wound bed 3. Cover with Allevyn Life medium or other foam border dressing. Lis KENNEDY. Contact primary care physician for referral to surgeon. Surgeons at [facility] 1. Dr. Tommie Joel 2. Dr. Yuliya Wade 3. Dr. Eliu Martin - Follow Up Care Current Providers and Referrals: Patient,NotPresent [Unknown] - As per Instructions Eliu Martin MD [Medical Doctor] - (Can contact this number for either of the surgeons listed in paperwork)
--- NOTE | 2018-01-14 13:57 | GDS ---
DISCHARGE DIAGNOSES: 1. Parkinson disease. 2. Recent ostomy. 3. Chronic suprapubic catheter. 4. Recent flap procedure for sacral decubitus ulcers. 5. Septic shock evidenced by hypotension, tachycardia and elevated white count. 6. Klebsiella/pseudomonas bacteremia secondary to urinary tract infection. 7. Hypokalemia. 8. Hypomagnesium. 9. Dysphagia. 10. Hypotension. 11. Concern for possible colonic fistula. HISTORY OF PRESENT ILLNESS: A 67-year-old male with Parkinson disease, chronic suprapubic Nuñez, recent colostomy, presenting with fatigue and confusion. History was obtained from his son, who is his main pecan picker. He was noted to be febrile and more confused. This is a common presentation from when he has a UTI, per son. Son reports that he has been having stool from his rectum despite ostomy placement 8 months ago. This was new over the last couple weeks. HOSPITAL COURSE BY PROBLEM: 1. Septic shock: Secondary to Klebsiella/pseudomonal bacteremia from urinary source. He has a chronic indwelling Nuñez. He required pressors briefly in the ICU. He is currently normotensive. 2. Klebsiella/pseudomonas bacteremia: He is being treated with ceftriaxone. We will transition the Levaquin for a total of 10 days. There is a concern of possible fistula with stooling despite ostomy. Recommended to the son that he gets an immediate outpatient referral to Surgery for further evaluation. He was provided the phone number to schedule appointment. 3. Parkinson disease: Continue home medications. He is wheelchair bound. His son is his primary caregiver. Offered possible rehab at discharge, but patient adamantly declined. Case Management arranged for home RN and [facility] SUPPORT CENTER DIRECTOR. 4. Hypokalemia/hypomagnesium: Repleted on protocol. 5. Dysphagia: Bedside swallow showed no oral dysphagia. This could advance with Parkinson disease. 6. Hypotension: Secondary to acute infection. This has resolved. 7. Acute on chronic encephalopathy: He has been hallucinating here seeing bugs. This is typical, per son, when he is infected. 8. Sacral decubitus ulcer: This was present on admission. Recent flap surgery. Wound Care was consulted, and recommendations from Wound Care will be continued at discharge. 9. Disposition: Patient is stable for discharge home with his son with home RN and [facility] DIRECTOR. FOLLOWUP: 1. Referral for primary care physician. 2. Referral for outpatient surgical consultation. Recommend son contact the original surgeon that did his father's surgery to evaluate for fistula. 3. Wound care. PHYSICAL EXAMINATION: VITAL SIGNS: Today, temperature 36.8. Blood pressure is 134/78, heart rate is in the 80s, respirations 16, 97% on room air. GENERAL : No acute distress. HEENT: PERRLA. Moist mucous membranes. CV: Regular rate and rhythm. CHEST: With a right subclavian line, no surrounding erythema. LUNGS: Clear anteriorly. ABDOMEN: Soft, nontender, nondistended. Positive bowel sounds. : Suprapubic Nuñez. Ostomy in place. MUSCULOSKELETAL: Generalized weakness. NEURO: Pill rolling of his hands, tremor at rest. 2 through 12 intact. PSYCH: He is alert and oriented. He is slow to answer questions. Addendum: patient will stay overnight to evaluate for colonic fistula or abscess ; CT pending /[id number]/MODL MTDD
--- NOTE | 2018-01-14 15:19 | ASMTCMCOM ---
CM Note CM Note Notes: Spoke with MD who initially wished to dc patient. Patient needs PCP and is unable to travel. Referral to [facility] accepted and suggestion made for [facility]. They do service the address per [facility] co-ordinator. Number given to son Leonel so he can obtain and fill out paper work for care. Discharge delayed at this time. CM to follow. Plan: TBD. Date Signed: 01/14/2018 03:18 PM Electronically Signed By:Kelin Hernández RN
[2018-01-14] MEDS ORDERED: IOPAMIDOL (ISOVUE-300) 150 ML BTL ONE (16:14)
[2018-01-14] MEDS ORDERED: IOPAMIDOL (ISOVUE 370) 100 ML BTL IV ONE (17:21)
[2018-01-14] MEDS: ACETAMINOPHEN 325 MG TAB PO PRN (21:17)
[2018-01-15] MEDS ORDERED: POTASSIUM CL 10 MEQ TAB PO ONE ×2 (01:00→09:22)
[2018-01-15 05:09] LABS: PLATELET COUNT 212 10^3/uL (150-400)
[2018-01-15] MEDS: CARBIDOPA/LEVODOPA 25 MG/100 MG TAB PO SCH (08:41)
[2018-01-15] MEDS: ASPIRIN EC 81 MG TAB PO SCH (08:41)
[2018-01-15] MEDS: ENOXAPARIN 40 MG/0.4 ML SYR SC SCH (08:41)
[2018-01-15] MEDS: INSULIN LISPRO 100 UNIT/ML SC SCH ×2 (08:56→13:02)
[2018-01-15] MEDS ORDERED: MAGNESIUM SULF 1 GM/DEXTROSE 100 ML IV ONE (09:19)
--- NOTE | 2018-01-15 11:37 | HOSPPROG ---
Hospitalist Progress Note Assessment/Plan: Patient stayed overnight for CT to ensure no abscess or colonic fistula. Stable Objective: Vital Signs Temp Pulse Resp BP Pulse Ox 36.7 C 93 18 143/83 H 96 01/15/18 08:00 01/15/18 08:00 01/15/18 08:00 01/15/18 08:00 01/15/18 08:00 Microbiology 01/11/18 00:30 Urine Culture - Final Urine,Catheterized Klebsiella Pneumoniae Ssp Pneu Pseudomonas Aeruginosa Laboratory Results 01/15/18 04:55 01/15/18 04:55 01/14/18 01/15/18 01/16/18 05:59 05:59 05:59 Intake Total 1194 840 Output Total 2825 4100 Balance -1631 -3260 PT 19.7 SEC (12.0-15.0) H 01/11/18 12:02 INR 1.66 (0.83-1.16) H 01/11/18 12:02 ICD10 Worksheet Patient Problems: Problems Problem Status Onset Dehydration Acute SIRS (systemic inflammatory response syndrome) Acute Urinary tract infection Acute
--- NOTE | 2018-01-15 11:51 | PDIAF ---
- Diagnosis Diagnosis: bacteremia Code Status: Full Code - Medication Management Discharge Medications: electronically signed and located in the Home Medication List. - Orders Services needed: Home Care, Registered Nurse, Master Transitional Studies Instructor, Physical Therapy, Occupational Therapy Home Care Face to Face: I certify that this patient was under my care and that I had the required [id number] encounter meeting the encounter requirements on the discharge day. My findings support the fact that the patient is homebound as defined in Home Care Face to Face Continued: CMS Chapter 7 Medicare Benefits Manual 30.1.1 , The condition of the patient is such that there exists a normal inability to leave home and consequently, leaving home would require a considerable and taxing effort. Diet Texture: Regular Texture Diet, Thin Liquids, Meds Whole w/Liquids Additional Instructions: Wound care: Please contact [facility] for an appointment, at [phone], for follow up within 2-3 weeks. Sacrum: Keep covered with mepilex border sacral dressing. Follow instructions below for ischial wound care if wounds are open, but cover with Mepilex border sacral dressing instead of other foam border dressing. Change dressings to Left and right ischial wounds every 3 days and prn. 1. Clean with ns and gauze 2. Apply Wound gel to wound bed 3. Cover with Allevyn Life medium or other foam border dressing. Lis KENNEDY. Contact primary care physician for referral to surgeon. Surgeons at [facility] 1. Dr. Tommie Joel 2. Dr. Yuliya Wade 3. Dr. Eliu Martin - Labs/Radiology BMP Date: 01/19/18 (Check magnesium level too) - Follow Up Care Current Providers and Referrals: Eliu Martin MD [Medical Doctor] - (Can contact this number for either of the surgeons listed in paperwork) Patient,NotPresent [Unknown] - As per Instructions
--- NOTE | 2018-01-15 12:03 | ASMTLACE ---
EMANUELE Length of stay for Answers: 4-6 days current admission Acuity / Level of Answers: Yes Care: Did the patient have an inpatient admission? Comorbidities - select Answers: Diabetes (uncontrolled or all that apply controlled) Mild liver or renal disease Other Notes: Parkinson's, Sacral decube s/p flap, Ostomy # of Emergency department Answers: 1-2 visits in the last 6 months Score: 12 Date Signed: 01/15/2018 12:02 PM Electronically Signed By:Kelin Hernández RN
--- NOTE | 2018-01-15 12:09 | ASMTCMCOM ---
CM Note CM Note Notes: Per Hospitalist the patient is medically cleared to discharge to home. Leonel was contacted and he is aware of his fathers discharge. CM to set up [facility] as patient is unable to safely sit in wheelchair. Leonel contacted the [facility] and is proceeding with securing PCP through them for his father. Cristine orders via [employer] to [facility]. Attempted to contact [facility] but no answer. They were aware of potential dc to home and stated they could open him on 01/16. The son would prefer he be transferred this pm. Plan: Dc to home with [facility]. Date Signed: 01/15/2018 12:08 PM Electronically Signed By:Kelin Hernández RN
--- NOTE | 2018-01-15 12:25 | ASMTCMCOM ---
CM Note CM Note Notes: [place] arranged for 3:30 pm via [facility]. Son Leonel notified of lease picker time and will be there to recieve his father. He states understanding. Date Signed: 01/15/2018 12:24 PM Electronically Signed By:Kelin Hernández RN
[2018-01-15 12:54] VITALS: BP 121/85
--- NOTE | 2018-01-15 15:13 | GDS ---
Please see full discharge summary dated 01/14/2018, for full hospital course. The patient stayed overnight to further evaluate for possible colonic fistula with new stooling from rectum over the past [address] scan with Radiology. No evidence of fistula or abscess. DISPOSITION: The patient is medically stable for discharge home with his son who is pump station operator. Dalia ent refused rehab placement. He will be discharged with [facility] and a home PCP grou p. FOLLOWUP: 1. Referral to surgery to further evaluate his ostomy. 2. Wound care. 3. Follow magnesium and BMP. PHYSICAL EXAMINATION: VITAL SIGNS: Today, temperature 36.4, blood pressure 121/85, heart rate is in the 90s, respirations 16, 95% on room air. GENERAL: No acute distress: HEENT: Smiling. More col or to his face. CV: Regular rate and rhythm. LUNGS: Clear anteriorly. ABDOMEN: Soft, nontender w ith ostomy with brown stool. : Chronic indwelling suprapubic Nuñez with no surrounding erythema. NEURO: Essential tremor and a pill-rolling, 2 through 12 intact. Time spent on discharge greater than 30 minutes coordinating with corporate meeting planner. /[id number]/MODL
--- NOTE | 2018-01-20 14:56 | PQFORM ---
PHYSICIAN QUERY FORM Needs Your Response This query form is being sent to you to assure this patient record is coded properly. 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 Servin, On the 01/[address] Thompson, he documents that the he suspects ' catheter associated urinary tract infection with chronic suprapubic catheter as cause'. The discharge summary states the patient had septic shock from urinary source and that the patient has a chronic indwelling Nuñez (suprapubic catheter) . Based on the clinical findings and your professional judgment, was there found to be a causal relationship between the chronic catheter and the urinary tract infection? ____ yes ___x_ no unknown if linked other ____The infection is due to due to chronic foley Thank you for clarifying, LAY Antunez HIM coding INSTRUCTIONS FOR RESPONSE: Answer question by clicking on the "Edit Document" button. Move cursor to area below the stars. When complete, hit "Save." Click on the "Sign" button, then click "Sign" again. Type in your PIN and hit "Enter." MTDD
== END 2018-01-15 16:02 | disposition home health service (06) | DRG 698 ==
LOC: F2N 01-11 00:50 → F1N 01-13 16:30
PROVIDERS: ADMIT Student in an Organized Health Care Education/Training Program; ATTEND Internal Medicine
PROC: 02HV33Z Insertion of Infusion Device into Superior Vena Cava, Percutaneous Approach (ICD-10-PCS; principal; 2018-01-11)
DX: T83.511A Infection and inflammatory reaction due to indwelling urethral catheter, initial encounter (principal); A41.9 Sepsis, unspecified organism; B96.1 Klebsiella pneumoniae [K. pneumoniae] as the cause of diseases classified elsewhere; N39.0 Urinary tract infection, site not specified; R65.21 Severe sepsis with septic shock; G93.41 Metabolic encephalopathy; N17.9 Acute kidney failure, unspecified; L89.154 Pressure ulcer of sacral region, stage 4; L89.224 Pressure ulcer of left hip, stage 4; E87.2 Acidosis; G20 Parkinson's disease; F02.80 Dementia in other diseases classified elsewhere, unspecified severity, without behavioral disturbance, psychotic disturbance, mood disturbance, and anxiety; E11.40 Type 2 diabetes mellitus with diabetic neuropathy, unspecified; Z93.2 Ileostomy status; Z93.51 Cutaneous-vesicostomy status; E86.0 Dehydration; Z79.84 Long term (current) use of oral hypoglycemic drugs; E87.6 Hypokalemia; E83.42 Hypomagnesemia; D64.9 Anemia, unspecified; R13.10 Dysphagia, unspecified; Z23 Encounter for immunization
CPT/HCPCS: 92526-GN; 92610-GN; 97166-GO; 97530-GO; 97535-GO; G0009; G8987-GO-CL; G8988-GO-CK; G8996-GN-CI; G8997-GN-CI; J0456; J0696; J1642; J1650; J1815; J2185; J3475; Q9967